=== PATIENT | male | born 1990 | race Two or more races ===

== ENCOUNTER 2021-10-11 22:17 | Emergency (ER) | payer SELFPAY ==
[~2021-10-11] VITALS: Ht 182.9 cm; Wt 92.2 kg
[2021-10-11 22:17] VITALS: BP 122/81
== END 2021-10-12 02:43 | disposition left against medical advice (07) ==
LOC: ER 22:20
DX: H57.89 Other specified disorders of eye and adnexa (principal); Z53.21 Procedure and treatment not carried out due to patient leaving prior to being seen by health care provider